=== PATIENT | male | born 1955 | race Caucasian/White ===

== ENCOUNTER 2018-08-02 11:26 | Day surgery (SDC) | payer OTHER ==
--- NOTE | 2018-08-02 08:47 | PDHPUP ---
History & Physical Update H&P update statement: This history and physical update is based on an assessment of the patient which was completed after admission or registration (within 24 hours), but prior to the surgery/procedure. H&P update: H&P reviewed & patient examined, no change in patient's condition since H&P completed
[2018-08-02] MEDS ORDERED: ceFAZolin 2 GM/DEXTROSE 100 ML IV ONE (11:39)
[2018-08-02] MEDS ORDERED: LIDOCAINE 1% 2 ML INJ ID PRN (11:40)
[2018-08-02] MEDS ORDERED: LR 1,000 ML IV ONE (11:40)
[2018-08-02] MEDS ORDERED: LIDOCAINE 1% 2 ML INJ ONE (11:46)
[2018-08-02] MEDS ORDERED: BUPIVACAINE/EPI 0.25% 30 ML SDV ONE ×2 (12:26→12:59)
--- NOTE | 2018-08-02 12:35 | PDANEPAE ---
ANE History of Present Illness R inguinal hernia, here for repair with robotic assist ANE Past Medical History - Cardiovascular History Hx Hypertension: No Hx Arrhythmias: No Hx Chest Pain: No Hx Coronary Artery / Peripheral Vascular Disease: No Hx CHF / Valvular Disease: No Hx Palpitations: No - Pulmonary History Hx COPD: No Hx Asthma/Reactive Airway Disease: No Hx Recent Upper Respiratory Infection: No Hx Oxygen in Use at Home: No Hx Sleep Apnea: No Sleep Apnea Screening Result - Last Documented: Positive - Neurologic History Hx Cerebrovascular Accident: No Hx Seizures: No Hx Dementia: No - Endocrine History Hx Diabetes: No - Renal History Hx Renal Disorders: Yes Renal History Comment: 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 VASECTOMY ANE Review of Systems Review of Systems: - Exercise capacity METS (RN): 4 METS ANE Patient History - Allergies Allergies/Adverse Reactions: No Known Allergies Allergy (Unverified 08/01/18 08:47) - Home Medications Home Medications: Vitamin D3 08/02/18 [Last Taken 08/01/18] - NPO status NPO Since - Liquids (Date): 08/01/18 NPO Since - Liquids (Time): 20:00 NPO Since - Solids (Date): 08/01/18 NPO Since - Solids (Time): 20:00 - Smoking Hx Smoking Status: Current every day smoker - Family Anes Hx Family Hx Anesthesia Complications: NONE ANE Labs/Vital Signs - Vital Signs Height: 175.26 cm Weight: 74.843 kg ANE Physical Exam - Airway Neck exam: FROM Mallampati Score: Class 1 Mouth exam: normal dental/mouth exam - Pulmonary Pulmonary: no respiratory distress - Cardiovascular Cardiovascular: regular rate and rhythym - ASA Status ASA Status: II ANE Anesthesia Plan Anesthesia Plan: general endotracheal anesthesia Total IV Anesthesia: No
[2018-08-02] MEDS ORDERED: MIDAZOLAM 2 MG/2 ML VIAL IVP ONE (12:36)
[2018-08-02] MEDS ORDERED: PROPOFOL 200 MG/20 ML VIAL ONE (12:56)
[2018-08-02] MEDS ORDERED: LIDOCAINE 2% 5 ML SDV ONE (12:56)
[2018-08-02] MEDS ORDERED: fentaNYL 100 MCG/2 ML INJ ONE ×2 (12:56→14:06)
[2018-08-02] MEDS ORDERED: ACETAMINOPHEN 500 MG TAB PO PRN (13:54)
[2018-08-02] MEDS ORDERED: LR 500 ML IV PRN (13:54)
[2018-08-02] MEDS ORDERED: NALOXONE HCL 0.4 MG/ML INJ IVP PRN (13:54)
[2018-08-02] MEDS ORDERED: MEPERIDINE 25 MG/0.5 ML AMP IVP PRN (13:54)
[2018-08-02] MEDS ORDERED: ONDANSETRON 4 MG/2 ML VIAL IVP PRN (13:54)
[2018-08-02] MEDS ORDERED: fentaNYL 100 MCG/2 ML INJ IVP PRN (13:54)
[2018-08-02] MEDS ORDERED: PROMETHAZINE HCL 25 MG/ML INJ IVP PRN (13:54)
[2018-08-02] MEDS ORDERED: oxyCODONE IR 5 MG TAB PO PRN (13:54)
[2018-08-02] MEDS ORDERED: HYDROmorphONE/DILAUDID 2 MG/ML INJ IVP PRN (13:54)
--- NOTE | 2018-08-02 14:05 | POSTOPPROG ---
Post Op Note Date of Operation: 08/02/18 Surgeon: Nitin Busch Welding Machine Assembler: SILVIA Pierson Anesthesiologist: Vika Anesthesia: GET(General Endotracheal) Pre-op Diagnosis: RIH Post-op Diagnosis: same Procedure: Robotic assisted RIH c mesh Findings: femoral and indirect hernias Inf/Abcess present in the surg proc area at time of surgery?: No EBL: Minimal
[2018-08-02] MEDS ORDERED: ONDANSETRON 4 MG/2 ML VIAL ONE (15:03)
--- NOTE | 2018-08-02 16:27 | POSTANESTH ---
Post Anesthetic Evaluation Cardiovascular Status: Normal, Stable Respiratory Status: Normal, Stable Level of Consciousness/Mental Status: Can Participate in Eval Pain Control: Adequate, Prn Tx Ordered Nausea/Vomiting Control: Adequate, Prn Tx Ordered Complications Possibly Related to Anesthesia: None Noted
[2018-08-02 16:55] VITALS: BP 131/85
--- NOTE | 2018-08-04 16:56 | GOP ---
DATE OF OPERATION: 08/02/2018 SURGEON: Nitin Busch MD ELECTRIC SWITCH TESTER: Hortencia Das CFA ANESTHESIA: General endotracheal. ANESTHESIOLOGIST: Dr. Praveena Sandy PREOPERATIVE DIAGNOSIS: Right inguinal hernia. POSTOPERATIVE DIAGNOSIS: Right femoral and indirect inguinal hernias. PROCEDURE PERFORMED: Robotic assisted laparoscopic right inguinal hernia repair with mesh. FINDINGS: Patient had a small femoral hernia, as well as a moderate-sized indirect inguinal hernia. Both of these were reduced, skeletonized, and repaired with Bard 3D Light large-size mesh. SPECIMENS: None. ESTIMATED BLOOD LOSS: 5 cc. DESCRIPTION OF PROCEDURE: The patient was greeted in the preoperative suite. Once again, risks, leif efits, and alternatives were discussed. Consent was signed. He was then brought back to the operati ve suite, placed on the OR table in supine position. After all anesthesia machines, including SCDs w ere on and functioning, a [employer] time-out was performed. After successful inducti on of general anesthesia, the patient's abdomen was prepped and draped in typical sterile fashion. I commenced the procedure by making a supraumbilical cutdown, through which the Veress needle was pas sed. I achieved pneumoperitoneum to 15 mmHg, which was well tolerated by the patient. Through this, I inserted an 8 mm trocar. Once successfully in the abdomen, I inserted 2 additional 8 mm trocars, 1 in the right and 1 in the left upper quadrant. After this was done, the patient was placed in gent le Trendelenburg position and the robot was docked. I turned my attention first toward the patient's right side where he clearly had a femoral and indire ct inguinal hernia. I scored the peritoneum from just medial to the ASIS all the way to the pubic tu bercle. I created my flap all the way down to the visceral sac and skeletonized the cord structures off the sac. The femoral hernia was also reduced. After successful reduction, I interrogated the ar ea and found no other suspicious findings. A Bard 3D Light large-size mesh was then brought into hilda ce. It was attached to the pubic tubercle, as well as on the medial and lateral sides of the inferio r epigastric vessels with an interrupted Vicryl suture. The mesh was allowed to lay flat. The perit guerrero flap was then closed with a running 2 0 V-Loc suture. Pneumoperitoneum was then evacuated. Po rt sites were closed with interrupted Monocryl and Dermabond was placed. The patient was then extuba eric in the operative suite and taken to the PACU in satisfactory condition. DRAINS: None. COUNTS: All counts were reported as correct x2. /[id number]/MODL
== END 2018-08-02 16:26 | disposition home or self-care (01) ==
LOC: FSGY 11:26
PROVIDERS: ATTEND Surgery
DX: K40.90 Unilateral inguinal hernia, without obstruction or gangrene, not specified as recurrent (principal); K41.90 Unilateral femoral hernia, without obstruction or gangrene, not specified as recurrent; Q63.9 Congenital malformation of kidney, unspecified; F17.200 Nicotine dependence, unspecified, uncomplicated
CPT/HCPCS: C1781; J0690; J2250; J2405; J2704; J3010